=== PATIENT | male | born 1965 | race Caucasian/White ===

== ENCOUNTER 2024-10-26 07:24 | Day surgery (SDC) | payer OTHER ==
--- NOTE | 2024-10-22 11:42 | EKG ---
Test Date: 2024-10-22 Test Time: 12:20:47 Body Design Checker: PATI MEASUREMENT RESULTS: Intervals: Rate: 82 IN: 156 QRSD: 96 QT: 356 QTc: 415 [place]: P: 55 IN: 156 QRS: 66 T: 45 INTERPRETIVE STATEMENTS: Normal sinus rhythm Normal ECG No previous ECG available for comparison Electronically Signed On 10-22-24 11:42:28 BANQUET MANAGER by Adi Kraus
[2024-10-22 11:47] LABS: Absolute Eosinophils 0.3 K/uL (0-0.5); Absolute Lymphocytes (CBC) 2.7 K/uL (0.7-4.9); Absolute Monocytes 0.7 K/uL (0.1-1.3); Absolute Neutrophil 4.9 K/uL (1.8-8.0); Basophils % 0.2 % (0-1.3); Eosinophils % 3.3 % (0-4.4); Hematocrit 45.6 % (39.6-49.0); Hemoglobin 16.1 g/dL (13.6-17.9); Lymphocytes % 31.3 % (15.3-44.8); MCH 30.1 pg (27.0-35.0); MCHC 35.3 g/dL (32.0-36.0); MCV 85.4 fL (80-100); MPV 7.5 fL (7.6-11.3); Monocytes % 8.3 % (3.3-12.3); Neutrophils % 56.9 % (41.7-73.7); Platelets 333 thou/uL (152-406); RBC Red Blood Cell Count 5.34 M/uL (4.33-5.43); Red Cell Distribution Width 13.3 % (12.1-15.2)
[2024-10-22 11:55] LABS: Anion Gap 5.4 mEq/L (5.0-15.0); Potassium 4.4 mEq/L (3.5-5.1)
--- NOTE | 2024-10-22 12:33 | RAD REPORT ---
EXAMINATION: ONE VIEW CHEST XR CLINICAL INDICATION: PREOP TECHNIQUE: Frontal chest projection is submitted. Examination is limited by patient positioning and t echnique. COMPARISON: No prior exam. FINDINGS: The lungs are well inflated and clear. The heart is upper limit of normal in size. No displaced fract ures identified. IMPRESSION: No acute intrathoracic abnormalities.
[2024-10-26] MEDS: Ringers Lactate 1,000 ML IV ONE (07:45)
[2024-10-26] MEDS ORDERED: MIDAZOLAM HCL 2 MG/2 ML INJ ONE (08:18)
[2024-10-26] MEDS ORDERED: KETOROLAC 30 MG/ML INJ ONE (08:18)
[2024-10-26] MEDS ORDERED: FENTANYL CITR 100 MCG/2 ML ONE (08:18)
[2024-10-26] MEDS ORDERED: ONDANSETRON 4 MG/2 ML VIAL ONE (08:18)
[2024-10-26] MEDS ORDERED: propofoL 200 MG/20 ML VIAL IV ONE (08:18)
[2024-10-26] MEDS ORDERED: dexAMETHasone 10 MG/ML VIAL ONE (08:18)
[2024-10-26] MEDS ORDERED: LIDOCAINE 2% MPF 5 ML VIAL ONE (08:19)
[2024-10-26] MEDS: CEFAZOLIN SODIUM 2 GM/VIAL ONE (09:38)
[2024-10-26] MEDS: BUPIVACAINE 0.5% PF 10 ML VIAL ONE (09:55)
[2024-10-26] MEDS ORDERED: NS 0.9% VIAL 20 ML ONE (09:55)
[2024-10-26] MEDS ORDERED: INSULIN REGULAR (HUMAN) 100 UNIT/ML ONE (10:15)
[2024-10-26] MEDS: FENTANYL CITR 100 MCG/2 ML ONE (11:15)
--- NOTE | 2024-10-26 11:22 | P.OP ---
Date of Service: 10/26/24 Preop diagnosis: Inflamed sebaceous cyst of the back Postop diagnosis: Same Procedure performed: Wide excision of back mass 10 x 6 cm with layered closure Surgeon: Jay Suaer MD Cashier Or Checker Stock Clerk: Jovanna ROJO Estimated blood loss: Minimal Specimen: Cyst contents for culture and sensitivity, sebaceous cystinfected from the back Findings: As above Anesthesia: General Complications: None Drains: Lise quarter-inch Fluids and blood products: Nonapplicable Disposition: Recovery room Operative note: Patient brought to the OR and placed in the supine position. General anesthesia began and patient placed in the left lateral position. Patient prepped and draped in the usual sterile fashion. Marcaine 0.5% infiltrated locally. 15 blade used to make approximately a 10 x 6 cm incision to include this large inflamed and infected sebaceous cyst. Subcutaneous tissue divided. Entire cyst excised down to the deep subcutaneous tissue. There was minimal oozing noted from the cyst which was cultured. Entire cyst was sent to pathology as specimen. Wound irrigated and bleeding controlled with cautery. Quarter inch Lise drain placed and secured with 3-0 nylon. #1 chromic used to reapproximate the deep and superficial subcutaneous tissue. 2-0 nylon used to close skin loosely. Sterile dressing applied. Patient awakened and taken to recovery room in good general condition. CC:
[2024-10-26] MEDS: HYDROMORPHONE HCL 1 MG/ML INJ ONE (11:25)
[2024-10-26 11:37] VITALS: O2SAT 97
[2024-10-26] MEDS ORDERED: HYDROCODONE/APAP 7.5/325 MG TAB ONE (11:57)
[2024-10-26] MEDS: HYDROCODONE/APAP 7.5/325 MG TAB PO PRN (12:00)
[2024-10-26 12:39] VITALS: BP 135/89; TEMP 97
== END 2024-10-26 12:50 | disposition home or self-care (01) ==
LOC: OR 07:24
PROVIDERS: ATTEND Surgery
PROC: 0JB70ZZ Excision of Back Subcutaneous Tissue and Fascia, Open Approach (ICD-10-PCS; principal; 2024-10-26 08:30)
DX: L72.3 Sebaceous cyst (principal)
CPT/HCPCS: 11406; 93005; 87070; 85025; 80048; 36415; 87205; 82947 ×2; 88304; 87075; 71045; A4216; J2704; J2003; J2250; J3010 ×2; J1100; J1171; J2405; J7120

== ENCOUNTER 2025-01-13 11:56 | Emergency (ER) | payer OTHER ==
--- OUTSIDE RECORDS SUMMARY | 2025-01-13 11:59 | XMS REPORT | Continuity of Care Document ---
Author Name Unknown Address [address] [facility] [place] [address] [facility] Address [address] [facility] [address] [place] [address] Care Team Providers Care Clicker Operator Name Role Phone Pcp, Patient Does Not Have A Primary Care Physic julio cesar PACO ALVARADO Attending Clinician UnaPaco Dial MD Attending Clinician + Doctor Unassigned, Evaro Attending Clinician U JONES Cooper Attending Clinician JONES Greer Attending Clinician Jones Greer MD Attending Clinician [phone] Eb BENTLEY Attending Clinician Unavailable Eb Young Attending Clinician [phone] Eb BENTLEY Admitting Clinician Unavailable Payers Payer Name Policy Type Policy Number Effective Date Expirati on Date Source MEDICARE PART A \T\ B [id number] 2011 00:00:00 Allergies, Adverse Reactions, Alerts Allergy Name Allergy Type Status Severity Reaction(s) Onset Date Inactive Date Treating Clinician Comments Source NO KNOWN ALLERGIE S Drug Class Active [facility] Social History Social Habit Start Date Stop Date Quantity Comments Source Sexual orientation U [facility] History of Social function 2023-09-19 00:00:00 2023-09-19 00:00:00 [facility] Sex Assigned At 1965 00:00:00 1965 00:00:00 [facility] Smoking Status Start Date Stop Date Source Tobacco smoking consumption unknown [facility] Medications Ordered Medication Name Filled Medication Name Start Date Stop Date Current Medication? Ordering Clinician Indication Dosage Frequency Signature (SIG) Comments Components Source naproxen (NAPROSYN) tablet 500 mg 2022-10 19:00: 00 09-10 18:00 :00 No 500mg 500 mg, Oral, ONCE, 1 dose, On Sat09/10/23 at 1300, Routine [facility] naproxen (NAPROSYN) 500 mg tablet 2022-10 00:00: 00 Yes [id number] 500mg Take 1 tablet by mouth in the morning and 1 tablet in the evening. Take with meals. [facility] Vital Signs Vital Name Observation Time Observation Value Comments S ashly Systolic blood pressure 2023-09-24 19:58:00 162 mm[Hg] [facility] Diastolic blood pressure 2023-09-24 19:58:00 96 mm[Hg] [facility] Heart rate 2023-09-24 19:58:00 61 /min [facility] Body temperature 2023-09-24 19:58:00 36.67 Dayana [facility] Body height 2023-09-24 19:58:00 180.3 cm [facility] Body weight 2023-09-24 19:58:00 127.461 kg [facility] BMI 2023-09-24 19:58:00 39.19 kg/m2 [facility] Body height 2023-09-19 19:34:00 180.3 cm [facility] Body weight 2023-09-19 19:34:00 127.461 kg [facility] BMI 2023-09-19 19:34:00 39.19 kg/m2 [facility] Systolic blood pressure 2023-09-10 16:49:00 169 mm[Hg] [facility] Diastolic blood pressure 2023-09-10 16:49:00 87 mm[Hg] [facility] Heart rate 2023-09-10 16:49:00 82 /min [facility] Body temperature 2023-09-10 16:49:00 36.61 Dayana [facility] Respiratory rate 2023-09-10 16:49:00 14 /min [facility] Body height 2023-09-10 16:49:00 180.3 cm [facility] Body weight 2023-09-10 16:49:00 127.461 kg [facility] BMI 2023-09-10 16:49:00 39.19 kg/m2 [facility] Oxygen saturation in Arterial blood by Pulse oximetry 2023-09-10 16:49:00 99 /min [facility] Procedures Procedure Date / Time Performed Performing Clinicia n Source ASSIGNMENT OF BENEFITS 2023-09-24 19:18:25 Docto r Unassigned, Evaro [facility] ASSIGNMENT OF BENEFITS 2023-09-10 19:25:24 Docto r Unassigned, Evaro [facility] XR ELBOW >3 VW RIGHT 2023-09-10 18:12:42 Eb Bentley [facility] NOTICE OF PRIVACY PRACTICES 2023-09-10 16:44:10 Doctor Unassigned, Evaro [facility] CONSENT/REFUSAL FOR DIAGNOSIS AND TREATMENT 2023-09-10 16:41:49 Doctor Unassigned, Evaro [facility] Encounters Start Date/Time End Date/Time Encounter Type Admission Type Attending Clinicians Care Facility Care Department Encounter ID Source 2023-09-24 14:00:00 2023-09-24 16:04:34 Outpatient R PACO ALVARADO [facility] [id number] [facility] 2023-09-24 14:00:00 2023-09-24 16:04:34 Office Visit Paco Alvarado [facility] ..114 [id number] [facility] 2023-09-24 00:00:00 2023-09-24 00:00:00 Orders Only Doctor Unassigned, Evaro [facility] .0.114 [id number] [facility] 2023-09-19 13:30:00 2023-09-19 14:11:30 Outpatient R KAUFMANJONES CRAIG [facility] [id number] [facility] 2023-09-19 13:30:00 2023-09-19 14:11:30 Office Visit Jones Kaufman [facility] 1..840.114 [id number] [facility] 2023-09-19 00:00:00 2023-09-19 00:00:00 Telephone Jones Kaufman [facility] 1..840.114 [id number] [facility] 2023-09-10 10:50:00 2023-09-10 13:56:00 Emergency X Eb BENTLEY [facility] ERT [id number] [facility] 2023-09-10 10:50:00 2023-09-10 13:56:00 Emergency Eb Bentley [facility] 1..840.114 [id number] [facility]
[2025-01-13] MEDS ORDERED: ASPIRIN 81 MG CHEWABLE TABLET ONE (12:31)
[2025-01-13 12:58] LABS: Absolute Basophils 0.1 K/uL (0-0.5); Absolute Eosinophils 0.2 K/uL (0-0.5); Absolute Lymphocytes (CBC) 2.3 K/uL (0.7-4.9); Absolute Monocytes 0.6 K/uL (0.1-1.3); Absolute Neutrophil 4.9 K/uL (1.8-8.0); Eosinophils % 2.7 % (0-4.4); Hemoglobin 16.3 g/dL (13.6-17.9); Lymphocytes % 28.2 % (15.3-44.8); MCHC 35.5 g/dL (32.0-36.0); MCV 84.4 fL (80-100); MPV 7.2 fL (7.6-11.3); Monocytes % 7.9 % (3.3-12.3); Neutrophils % 60.2 % (41.7-73.7); Platelets 309 thou/uL (152-406); RBC Red Blood Cell Count 5.45 M/uL (4.33-5.43); Red Cell Distribution Width 13.5 % (12.1-15.2)
[2025-01-13 13:03] LABS: PT Prothrombin Time 12.3 SECONDS (10-13.0); Protime INR 1.08
--- NOTE | 2025-01-13 13:05 | RAD REPORT ---
EXAMINATION: ONE VIEW CHEST XR CLINICAL INDICATION: Male, 59 years old.,CHEST PAIN TECHNIQUE: Frontal chest projection is submitted. Examination is limited by patient positioning and t echnique. COMPARISON: 10/22/2024 FINDINGS: The lungs are well inflated and clear. No pneumothorax or sizable effusion. The heart is normal in s ize. Mediastinal contours are unremarkable. IMPRESSION: No acute intrathoracic abnormalities.
[2025-01-13 13:22] LABS: Albumin 3.6 g/dL (3.4-5.0); Albumin/Globulin Ratio 0.8 (1.1-1.8); Anion Gap 8.1 mEq/L (5.0-15.0); Bilirubin Direct 0.2 mg/dL (0-0.2); Bilirubin Indirect, Calculated 0.6 mg/dL (0.2-0.8); Bilirubin Total 0.8 mg/dL (0.2-1.0); Globulin 4.5 g/dL (2.3-3.5); Magnesium 1.8 mg/dL (1.6-2.4); Potassium 4.1 mEq/L (3.5-5.1); Protein, Total 8.1 g/dL (6.4-8.2)
[2025-01-13 13:25] LABS: Troponin High Sensitivity 2400.8 pg/mL (<58.9)
[2025-01-13] MEDS ORDERED: HEPARIN/D5W 25,000 UNIT/500 ML BAG IV ONE (13:27)
[2025-01-13] MEDS ORDERED: HEPARIN 5000 UNIT/ML 1 ML VIAL ONE (13:34)
[2025-01-13 13:52] LABS: Anisocytosis 1+; Blood Morphology Comment NOTED (NOT SEEN); Platelet Estimate ADEQ; White Blood Cell Scan OK (OK)
[2025-01-13 13:53] LABS: Microcytosis SLIGHT
--- NOTE | 2025-01-13 14:04 | EDPHYS ---
Physician Documentation [facility] Name: Dean Rizo Age: 59 yrs Sex: Male : 1965 Arrival Date: 01/13/2025 Time: 11:56 Bed 5 Private MD: ED Physician Jacob Thomas HPI: 01/13 13:56 This 59 yrs old Male presents to ER via Ambulatory with complaints of Chest Pain. ms3 13:56 59-year-old male with no past medical history presents to the emergency department for ms3 chest pain that began yesterday. Patient states the pain is sharp and currently rated 2/10 without radiation. Patient has taken Tums without relief of his symptoms. Patient denies nausea, vomiting, shortness of breath.. Historical: - Allergies: 12:28 No Known Allergies; jl7 - Home Meds: 12:28 None [Active]; jl7 - PMHx: 12:28 None; jl7 - PSHx: 12:28 Appendectomy; jl7 - Immunization history:: Adult Immunizations up to date. - Infectious Disease History:: Denies. - Social history:: Smoking status: Patient denies any tobacco usage or history of. ROS: 13:56 Constitutional: Negative for fever, and chills. Respiratory: Negative for shortness of ms3 breath, cough, wheezing, and pleuritic chest pain, Abdomen/GI: Negative for abdominal pain, nausea, vomiting, diarrhea, and constipation, MS/Extremity: Negative for injury and deformity, 13:56 Cardiovascular: Positive for chest pain, Exam: 13:56 Constitutional: This is a well developed, well nourished patient who is awake, alert, ms3 and in no acute distress. Chest/axilla: Normal chest wall appearance and motion. Nontender with no deformity. Cardiovascular: Regular rate and rhythm with a normal S1 and S2. No gallops, murmurs, or rubs. Normal PMI, no JVD. No pulse deficits. Respiratory: Lungs have equal breath sounds bilaterally, clear to auscultation and percussion. No rales, rhonchi or wheezes noted. No increased work of breathing, no retractions or nasal flaring. Abdomen/GI: Soft, non-tender, with normal bowel sounds. No distension or tympany. No guarding or rebound. No evidence of tenderness throughout. Skin: Warm, dry with normal turgor. Normal color with no rashes, no lesions, and no evidence of cellulitis. MS/ Extremity: Pulses equal, no cyanosis. Neurovascular intact. Full, normal range of motion. 14:06 ECG was reviewed by the Attending Physician. ms3 Vital Signs: 12:15 BP 161 / 100; Pulse 77; Resp 15; Temp 97.9; Pulse Ox 94% ; Weight 117.93 kg; Height 5 jl7 ft. 11 in. ; Pain 2/10; 12:30 BP 158 / 86; Pulse 74; Resp 16; Pulse Ox 94% ; db 13:15 BP 143 / 89; Pulse 72; Resp 16; Pulse Ox 94% ; db 14:00 BP 143 / 97; Pulse 89; Resp 18; Pulse Ox 95% ; db 14:00 BP 133 / 84; Pulse 89; Resp 16; Pulse Ox 95% on R/A; db 15:30 BP 129 / 84; Pulse 73; Resp 18; Pulse Ox 94% ; db 12:15 Body Mass Index 36.26 (117.93 kg, 180.34 cm) jl7 12:15 Pain Scale: Adult jl7 MDM: 12:42 Medical Screening Exam initiated ms3 13:56 Differential diagnosis: abnormal EKG, acute myocardial infarction, coronary artery ms3 disease chest wall pain, stable angina. HEART Score: History: Moderately Suspicious (1), ECG: Normal (0), Age: > 45 and < 65 years (1), Risk Factors: No Risk Factors Known (0), Troponin: > or = 3 x Normal Limit (2), Total Score = 4. The patient was given aspirin in the Emergency Department. Data reviewed: vital signs, nurses notes, lab test result(s), EKG, radiologic studies, and as a result, I will transfer patient. Consideration of Admission/Observation Patient transferred as [facility]'s recyclable materials distributor is down at this time. Management of patient was discussed with the following: Hospitalist: Dr Bryant Carmichael. I considered the following discharge prescriptions or medication management in the emergency department Medications were administered in the Emergency Department. See MAR. Independent interpretation of the following test(s) in the Emergency Department EKG: See my EKG interpretation above. Counseling: I had a detailed discussion with the patient and/or guardian regarding the historical points, exam findings, and any diagnostic results supporting the discharge/admit diagnosis, lab results, radiology results, the need for further work-up and treatment in the hospital. ED course: Patient remains in stable condition with improvement in his chest pain. Discussed necessity for transfer with patient he understands and agrees with plan.. 04 12:07 Order name: Basic Metabolic Panel; Complete Time: 13:27 ms3 01/13 12:07 Order name: CBC with Diff; Complete Time: 14:03 ms3 01/13 12:07 Order name: LFT's; Complete Time: 13:27 ms3 01/13 12:07 Order name: Magnesium; Complete Time: 13:27 ms3 01/13 12:07 Order name: NT PRO-BNP; Complete Time: 13:27 ms3 01/13 12:07 Order name: PT-INR; Complete Time: 13:27 ms3 01/13 12:07 Order name: Troponin HS; Complete Time: 13:27 ms3 01/13 13:20 Order name: CBC Smear Scan; Complete Time: 14:03 EDMS 01/13 13:29 Order name: Ptt, Activated; Complete Time: 13:49 jl7 01/13 12:07 Order name: XRAY Chest (1 view); Complete Time: 13:27 ms3 01/13 12:07 Order name: Cardiac monitoring; Complete Time: 13:01 ms3 01/13 12:07 Order name: EKG - Nurse/Tech; Complete Time: 13:01 ms3 01/13 12:07 Order name: IV Saline Lock; Complete Time: 13:02 ms3 01/13 12:07 Order name: Labs collected and sent; Complete Time: 13:02 ms3 01/13 12:07 Order name: O2 Per Protocol; Complete Time: 13:02 ms3 01/13 12:07 Order name: O2 Sat Monitoring; Complete Time: 13:02 ms3 EC:06 Rate is 79 beats/min. Rhythm is regular. QRS [place] is Normal. MS interval is normal. QRS ms3 interval is normal. Clinical impression: NSR w/ Non-specific ST/T Changes. Interpreted by me. Reviewed by me. Administered Medications: 12:35 Drug: Aspirin PO Chewable Tablet 324 mg PO once; 81 mg tablets x 4 Route: PO; db 13:44 Follow up: Response: No adverse reaction 7 13:47 Drug: Heparin (VT-Bolus No thrombolytic) - HEParin IVP 60 units/kg IVP once; Max 5000 jl7 units {Co-Signature: cm10 (Elba Hough RN).} Route: IVP; Site: right hand; 15:12 Follow up: Response: No adverse reaction db 13:48 Drug: Heparin (VT Drip) 12 units/kg/[place] - ([place] [address] units, D5W IV 500 ml) IV at jl7 calculated rate Per protocol; Max initial rate 1000 units/hr {Co-Signature: cm10 (Elba Hough RN).} Route: IV; Rate: calculated rate; Site: right hand; 16:02 Follow up: IV Status: Infusion continued upon transfer db Disposition: 13:56 Critical Care:. ms3 Disposition Summary: 01/13/25 14:03 Transfer Ordered Notes: Transfer Location: [facility] ms3 Reason: Higher level of care ms3 Condition: Stable ms3 Problem: new ms3 Symptoms: are unchanged ms3 Accepting Physician: Dr Bryant Carmichael(01/13/25 16:02) db Diagnosis - Subsequent non-ST elevation (NSTEMI) myocardial infarction ms3 - Chest pain, unspecified ms3 - Elevated blood-pressure reading, without diagnosis of hypertension ms3 Forms: - Medication Reconciliation Form ms3 - SBAR form ms3 Critical care time excluding procedures: 13:56 Critical care time: Bedside Care: 35 minutes, Consultation: 5 minutes. Total time: 40 ms3 minutes Signatures: Dispatcher [employer] EDAraceli Zhang RN RN jl7 Jacob Thomas DO DO ms3 Yasmine Turcios RN RN db Elba Hough RN cm10 Corrections: (The following items were deleted from the chart) 12:08 12:08 Chest Single View+RAD.RAD.BRZ ordered. EDMS EDMS 13:30 13:30 PTT, ACTIVATED+COAG.LAB.BRZ ordered. EDMS EDMS 14:03 14:03 Dr Bryant Carmichael ms3 ms3 16:02 14:03 Dr Bryant Carmichael ms3 db
--- NOTE | 2025-01-13 14:04 | ER ---
Nurse's Notes [facility] Name: Dean Rizo Age: 59 yrs Sex: Male : 1965 Arrival Date: 01/13/2025 Time: 11:56 Bed 5 Private MD: Diagnosis: Subsequent non-ST elevation (NSTEMI) myocardial infarction;Chest pain, unspecified;Elevated blood-pressure reading, without diagnosis of hypertension Presentation: 01/13 12:15 Chief complaint: Patient states: Constant midsternal CP since yesterday, sharp, heavy, jl7 rated 2/10 right now and 9/10 at worst. Lasts 20-30 minutes when it increases. Coronavirus screen: At this time, the client does not indicate any symptoms associated with coronavirus-19. Ebola Screen: No symptoms or risks identified at this time. Initial Sepsis Screen: Does the patient meet any 2 criteria? No. Patient's initial sepsis screen is negative. Does the patient have a suspected source of infection? No. Patient's initial sepsis screen is negative. Risk Assessment: Do you want to hurt yourself or someone else? Patient reports no desire to harm self or others. Onset of symptoms was January 12, 2025. 12:15 Method Of Arrival: Ambulatory jl7 12:15 Acuity: KAVEH 2 jl7 Triage Assessment: 12:28 General: Appears in no apparent distress. uncomfortable, Behavior is calm, cooperative, jl7 appropriate for age. Pain: Complains of pain in mid-sternal area Pain currently is 2 out of 10 on a pain scale. at worst was 9 out of 10 on a pain scale. Cardiovascular: Patient's skin is warm and dry. Historical: - Allergies: 12:28 No Known Allergies; jl7 - Home Meds: 12:28 None [Active]; jl7 - PMHx: 12:28 None; jl7 - PSHx: 12:28 Appendectomy; jl7 - Immunization history:: Adult Immunizations up to date. - Infectious Disease History:: Denies. - Social history:: Smoking status: Patient denies any tobacco usage or history of. Screenin:48 [facility] ED Fall Risk Assessment (Adult) History of falling in the last 3 months, db including since admission No falls in past 3 months (0 pts) Confusion or Disorientation No (0 pts) Intoxicated or Sedated No (0 pts) Impaired Gait No (0 pts) Mobility Assist Device Used No (0 pt) Altered Elimination No (0 pt) Score/Fall Risk Level 0 - 2 = Low Risk Oriented to surroundings, Maintained a safe environment. Abuse screen: Denies threats or abuse. Denies injuries from another. Nutritional screening: No deficits noted. Tuberculosis screening: No symptoms or risk factors identified. Assessment: 12:35 Reassessment: Patient appears in no apparent distress at this time. Patient and/or db family updated on plan of care and expected duration. Pain level reassessed. Patient is alert, oriented x 3, equal unlabored respirations, skin warm/dry/pink. General: Appears in no apparent distress. comfortable, Behavior is calm, cooperative. Pain: Complains of pain in chest and mid-sternal area Pain does not radiate. Pain began gradually. Neuro: Level of Consciousness is awake, alert, obeys commands, Oriented to person, place, time, situation. Respiratory: Airway is patent Respiratory effort is even, unlabored, Respiratory pattern is regular, symmetrical. 13:30 Reassessment: Patient appears in no apparent distress at this time. Patient is alert, jl7 oriented x 3, equal unlabored respirations, skin warm/dry/pink. Dr. Thomas at bedside discussing results and POC. 14:34 Reassessment: Patient appears in no apparent distress at this time. Patient and/or db family updated on plan of care and expected duration. Pain level reassessed. Patient is alert, oriented x 3, equal unlabored respirations, skin warm/dry/pink. CALLED [facility] X 3 NO ANSWER. CALLING CALL [facility]. 14:37 Reassessment: RECEIVED NEW NUMBER FOR [facility]. [phone]. db 14:41 Reassessment: Patient appears in no apparent distress at this time. Patient and/or db family updated on plan of care and expected duration. Pain level reassessed. Patient is alert, oriented x 3, equal unlabored respirations, skin warm/dry/pink. 14:41 Reassessment: ATTEMPTED TO GIVE NURSE REPORT. NURSE STATES IS NOT GETTING THE PT AND TO db CALL BACK IN 5 MIN. 15:07 Reassessment: CALLED [facility] TO GIVE PATIENT REPORT. db 15:15 Reassessment: Patient appears in no apparent distress at this time. Patient and/or db family updated on plan of care and expected duration. Pain level reassessed. Patient is alert, oriented x 3, equal unlabored respirations, skin warm/dry/pink. Vital Signs: 12:15 BP 161 / 100; Pulse 77; Resp 15; Temp 97.9; Pulse Ox 94% ; Weight 117.93 kg; Height 5 jl7 ft. 11 in. ; Pain 2/10; 12:30 BP 158 / 86; Pulse 74; Resp 16; Pulse Ox 94% ; db 13:15 BP 143 / 89; Pulse 72; Resp 16; Pulse Ox 94% ; db 14:00 BP 143 / 97; Pulse 89; Resp 18; Pulse Ox 95% ; db 14:00 BP 133 / 84; Pulse 89; Resp 16; Pulse Ox 95% on R/A; db 15:30 BP 129 / 84; Pulse 73; Resp 18; Pulse Ox 94% ; db 12:15 Body Mass Index 36.26 (117.93 kg, 180.34 cm) jl7 12:15 Pain Scale: Adult 7 Vitals: 12:30 Cardiac Rhythm Assessment Regular Sinus rhythm. ED Course: 11:59 Patient arrived in ED. mr 12:07 Jacob Thomas DO is Attending Physician. ms3 12:18 Yasmine Turcios, RN is Primary Nurse. 12:28 Triage completed. jl7 12:28 Arm band placed on right wrist. jl7 12:40 XRAY Chest (1 view) In Process Unspecified. EDMS 12:48 Patient has correct armband on for positive identification. Bed in low position. Call db light in reach. Side rails up X 1. Client placed on continuous cardiac and pulse oximetry monitoring. NIBP monitoring applied. vehicle monitor technician on. Pulse ox on. NIBP on. Pillow given. 12:48 Initial lab(s) drawn, by me, sent to lab. Inserted saline lock: 20 gauge in left db antecubital area, using aseptic technique. Blood collected. Flushed with 10 mL NS. Patient maintains SpO2 saturation greater than 95% on room air. 13:23 Notified ED physician of a critical lab result(s). Troponin 2,400.8. jl7 13:[address] [facility]. bd 13:40 Provided Education on: Heparin drip. jl7 16:00 No provider procedures requiring assistance completed. Patient transferred, IV remains db in place. Administered Medications: 12:35 Drug: Aspirin PO Chewable Tablet 324 mg PO once; 81 mg tablets x 4 Route: PO; db 13:44 Follow up: Response: No adverse reaction jl7 13:47 Drug: Heparin (DE-Bolus No thrombolytic) - HEParin IVP 60 units/kg IVP once; Max 5000 jl7 units {Co-Signature: cm10 (Elba Hough RN).} Route: IVP; Site: right hand; 15:12 Follow up: Response: No adverse reaction db 13:48 Drug: Heparin (DE Drip) 12 units/kg/[place] - ([place] [address] units, D5W IV 500 ml) IV at jl7 calculated rate Per protocol; Max initial rate 1000 units/hr {Co-Signature: cm10 (Elba Hough RN).} Route: IV; Rate: calculated rate; Site: right hand; 16:02 Follow up: IV Status: Infusion continued upon transfer db Medication: 12:48 VIS not applicable for this client. db Outcome: 14:03 ER care complete, transfer ordered by ms3 16:00 Transferred by ground EMS to [facility], Transfer form completed. db X-rays sent w/ patient. 16:00 Condition: stable 16:00 Instructed on the need for transfer, 16:02 Patient left the ED. db Signatures: Dispatcher [employer] EDMS Leana Bahena, Chelsey, Reg Reg mr AguilarAraceli, RN RN jl7 Jacob Thomas DO DO ms3 Yasmine Turcios RN RN db Elba Hough RN cm10 Corrections: (The following items were deleted from the chart) 13:50 13:26 Reassessment: Patient appears in no apparent distress at this time. Patient jl7 and/or family updated on plan of care and expected duration. Pain level reassessed. Patient is alert, oriented x 3, equal unlabored respirations, skin warm/dry/pink. db 15:11 14:00 BP 143 / 97; Pulse 89bpm; Resp 16bpm; Pulse Ox 95% RA; db db
[2025-01-13 16:21] VITALS: TEMP 97.9
[2025-01-13 16:29] VITALS: BP 129/84; O2SAT 94
--- NOTE | 2025-01-14 11:49 | EKG ---
Test Date: 2025-01-13 Test Time: 12:20:36 Sales Recruiter: KAREN MEASUREMENT RESULTS: Intervals: Rate: 79 NH: 158 QRSD: 96 QT: 374 QTc: 428 [place]: P: 48 NH: 158 QRS: 68 T: 47 INTERPRETIVE STATEMENTS: Normal sinus rhythm Nonspecific ST abnormality Abnormal ECG Compared to ECG 10/22/2024 12:20:47 ST (T wave) deviation now present Electronically Signed On 01-14-25 11:48:29 CDT by Adi Kraus
== END 2025-01-13 16:02 | disposition short-term general hospital (02) ==
LOC: ER 11:56
DX: I21.4 Non-ST elevation (NSTEMI) myocardial infarction (principal); R03.0 Elevated blood-pressure reading, without diagnosis of hypertension
CPT/HCPCS: 96365; 93005; 85025; 80048; 36415; 83735; 85610; 80076; 85730; 84484; 83880; 71045; 99285; 96366; J1644

== ENCOUNTER 2025-01-25 03:44 | Emergency (ER) | payer OTHER ==
[2025-01-25 04:16] LABS: Protime INR 1.06
[2025-01-25 04:18] LABS: Absolute Basophils 0.1 K/uL (0-0.5); Absolute Eosinophils 0.3 K/uL (0-0.5); Absolute Lymphocytes (CBC) 3.7 K/uL (0.7-4.9); Absolute Monocytes 0.9 K/uL (0.1-1.3); Absolute Neutrophil 3.7 K/uL (1.8-8.0); Eosinophils % 3.3 % (0-4.4); Hematocrit 43.6 % (39.6-49.0); Lymphocytes % 42.8 % (15.3-44.8); MCH 29.8 pg (27.0-35.0); MCHC 34.5 g/dL (32.0-36.0); MCV 86.4 fL (80-100); MPV 7.4 fL (7.6-11.3); Neutrophils % 42.9 % (41.7-73.7); Nucleated Red Blood Cells % 0.2 % (0-0); Platelets 325 thou/uL (152-406); RBC Red Blood Cell Count 5.05 M/uL (4.33-5.43); Red Cell Distribution Width 13.6 % (12.1-15.2)
[2025-01-25 04:31] LABS: Albumin 3.4 g/dL (3.4-5.0); Albumin/Globulin Ratio 0.8 (1.1-1.8); Anion Gap 7.7 mEq/L (5.0-15.0); Bilirubin Direct 0.2 mg/dL (0-0.2); Bilirubin Indirect, Calculated 0.3 mg/dL (0.2-0.8); Bilirubin Total 0.5 mg/dL (0.2-1.0); Globulin 4.2 g/dL (2.3-3.5); Magnesium 1.9 mg/dL (1.6-2.4); Potassium 3.7 mEq/L (3.5-5.1); Protein, Total 7.6 g/dL (6.4-8.2)
[2025-01-25 04:45] LABS: Troponin High Sensitivity 85.5 pg/mL (<58.9)
[2025-01-25] MEDS ORDERED: PRASUGREL (EFFIENT) 10 MG TAB ONE (04:47)
[2025-01-25] MEDS ORDERED: ASPIRIN 81 MG CHEWABLE TABLET ONE (04:54)
--- NOTE | 2025-01-25 05:58 | RAD REPORT ---
EXAM: XR Chest, 1 View CLINICAL HISTORY: The patient is 59 years old and is Male; CHEST PAIN TECHNIQUE: Frontal view of the chest. COMPARISON: No relevant prior studies available. FINDINGS: Lungs: Unremarkable. No consolidation. Pleural space: Unremarkable. No pneumothorax. Heart: Unremarkable. Mediastinum: Unremarkable. Normal mediastinal contour. Bones/joints: No acute findings. IMPRESSION: No acute findings in the chest. Electronically signed by: Bryant Goodman MD 01/25/2025 05:43 AM CDT 8 Due to temporary technical issues with the PACS/EagerPanda reporting system, reports are being ubaldo d by the in-house radiologist without review as a courtesy to ensure prompt reporting the interpreting radiologist is fully responsible for the content of the report. Transcribed Date/Time: 01/25/2025 5:57 AM
--- NOTE | 2025-01-25 07:24 | ER ---
Nurse's Notes [facility] Name: Dean Rizo Age: 59 yrs Sex: Male : 1965 Arrival Date: 01/25/2025 Time: 03:44 Bed 4 Private MD: Diagnosis: Chest pain, unspecified Presentation: 01/25 03:53 Chief complaint: Patient states: I have some chest discomfort that started about 2 hrs kd3 ago. The pain is a 1/10, but i had some stents place on the and so I am concerned. Coronavirus screen: Vaccine status: Patient reports being unvaccinated. Ebola Screen: No symptoms or risks identified at this time. Initial Sepsis Screen: Does the patient meet any 2 criteria? No. Patient's initial sepsis screen is negative. Does the patient have a suspected source of infection? No. Patient's initial sepsis screen is negative. Risk Assessment: Do you want to hurt yourself or someone else? Patient reports no desire to harm self or others. Onset of symptoms was January 25, 2025. 03:53 Method Of Arrival: Ambulatory kd3 03:53 Acuity: KAVEH 3 kd3 Triage Assessment: 03:54 General: Appears in no apparent distress. Behavior is calm, cooperative. Pain: kd3 Complains of pain in chest Pain currently is 1 out of 10 on a pain scale. Cardiovascular: Reports chest pain, shortness of breath. Historical: - Allergies: 03:54 No Known Allergies; kd3 - PMHx: 07:45 Myocardial infarction; jl7 - PSHx: 03:54 Appendectomy; kd3 07:45 cardiac stent; jl7 - Immunization history:: Adult Immunizations up to date. - Infectious Disease History:: Denies. - Social history:: Smoking status: Patient denies any tobacco usage or history of. - Family history:: not pertinent. Screenin:[facility] ED Fall Risk Assessment (Adult) History of falling in the last 3 months, kd3 including since admission No falls in past 3 months (0 pts) Confusion or Disorientation No (0 pts) Intoxicated or Sedated No (0 pts) Impaired Gait No (0 pts) Mobility Assist Device Used No (0 pt) Altered Elimination No (0 pt) Score/Fall Risk Level 0 - 2 = Low Risk Oriented to surroundings. Abuse screen: Denies threats or abuse. Denies injuries from another. Nutritional screening: No deficits noted. Tuberculosis screening: No symptoms or risk factors identified. Assessment: 03:58 General: Appears in no apparent distress. Behavior is calm, cooperative. Pain: Pain kd3 does not radiate. Pain began 2 hours ago. Neuro: Level of Consciousness is awake, alert, obeys commands, Oriented to person, place, time, situation. Cardiovascular: Patient's skin is warm and dry. Respiratory: Airway is patent Trachea midline Respiratory effort is even, unlabored, Respiratory pattern is regular, symmetrical. 04:40 Reassessment: Patient and/or family updated on plan of care and expected duration. Pain kd3 level reassessed. Patient is alert, oriented x 3, equal unlabored respirations, skin warm/dry/pink. Vital Signs: 03:55 Weight 119.29 kg; Height 5 ft. 11 in. ; kd3 03:58 BP 112 / 71; Pulse 68; Resp 16; Temp 98.1(O); Pulse Ox 96% on R/A; kd3 05:12 BP 123 / 78; Pulse 58; Resp 16; Pulse Ox 100% on R/A; kd3 06:11 BP 124 / 77; Pulse 56; Resp 19; Pulse Ox 98% on R/A; kd3 07:45 BP 126 / 74; Pulse 57; Resp 15; Pulse Ox 97% ; jl7 03:55 Body Mass Index 36.68 (119.29 kg, 180.34 cm) kd3 [employer] Coma Score: 07:00 Eye Response: spontaneous(4). Motor Response: obeys commands(6). Verbal Response: sp4 oriented(5). Total: 15. ED Course: 03:45 Patient arrived in ED. jj6 03:52 Colt Nickerson MD is Attending Physician. sp4 03:53 Rossy Mercado, JUANI is Primary Nurse. kd3 03:54 Triage completed. kd3 03:54 Arm band placed on right wrist. kd3 03:56 Initial lab(s) drawn, by me, sent to lab. EKG done, by echocardiography tech. reviewed by Colt Nickerson MD. Inserted saline lock: 20 gauge in left antecubital area, using aseptic technique. Blood collected. Flushed with 10 mL NS. 03:57 Basic Metabolic Panel Sent. vc1 03:57 CBC with Diff Sent. vc1 03:57 LFT's Sent. vc1 03:58 Magnesium Sent. vc1 03:58 NT PRO-BNP Sent. vc1 03:58 PT-INR Sent. vc1 03:58 Troponin HS Sent. vc1 03:59 Patient has correct armband on for positive identification. Provided Education on: kd3 vitals . Client placed on continuous cardiac and pulse oximetry monitoring. NIBP monitoring applied. monitor technician on. 04:00 No provider procedures requiring assistance completed. Patient maintains SpO2 kd3 saturation greater than 95% on room air. 04:11 XRAY Chest (1 view) In Process Unspecified. EDMS 06:46 Troponin High Sensitivity Sent. oe 07:45 IV discontinued, intact, bleeding controlled, No redness/swelling at site. Pressure jl7 dressing applied. Administered Medications: 04:58 Drug: Effient PO 60 mg PO once; (loading dose) Route: PO; kd3 07:46 Follow up: Response: No adverse reaction jl7 04:58 Drug: Aspirin PO Chewable Tablet 324 mg PO once; 81 mg tablets x 4 Route: PO; kd3 07:46 Follow up: Response: No adverse reaction jl7 Medication: 04:00 VIS not applicable for this client. kd3 Outcome: 07:24 Discharge ordered by . sp4 07:45 Discharged to home ambulatory, jl7 07:45 Condition: stable 07:45 Discharge instructions given to patient, Instructed on discharge instructions, follow up and referral plans. medication usage, Demonstrated understanding of instructions, follow-up care, medications, Prescriptions given X 1, 07:46 Patient left the ED. jl7 Signatures: Dispatcher [employer] EDMS Marc Evangelista Jahala RN RN jl7 Jada Hamilton jj6 Rossy Mercado RN RN kd3 Phyllis Acuna RN RN vc1 Colt Nickerson MD MD sp4
--- NOTE | 2025-01-25 07:24 | EDPHYS ---
Physician Documentation [facility] Name: Dean Rizo Age: 59 yrs Sex: Male : 1965 Arrival Date: 01/25/2025 Time: 03:44 Bed 4 Private MD: ED Physician Colt Nickerson HPI: 01/25 06:51 This 59 yrs old Male presents to ER via Ambulatory with complaints of Stint sp4 put in on 01/13/25, Chest Tightness, Neck and Upper Back Pain. 07:00 59-year-old male with history of coronary artery stent on 01/13/[address] presents with moderate left-sided chest discomfort associated with radiation to the back. 07:00 Patient states he was not able to get his Effient. He does take aspirin daily but sp4 Effient he is not taking.. Historical: - Allergies: 03:54 No Known Allergies; kd3 - PMHx: 07:45 Myocardial infarction; jl7 - PSHx: 03:54 Appendectomy; kd3 07:45 cardiac stent; jl7 - Immunization history:: Adult Immunizations up to date. - Infectious Disease History:: Denies. - Social history:: Smoking status: Patient denies any tobacco usage or history of. - Family history:: not pertinent. ROS: 07:00 Constitutional: Negative for fever, chills, and weight loss, positive chest discomfort sp4 positive back pain 07:00 All other systems are negative, Exam: 07:00 Constitutional: This is a well developed, well nourished patient who is awake, alert, sp4 and in no acute distress. Head/Face: Normocephalic, atraumatic. Eyes: Pupils equal round and reactive to light, extra-ocular motions intact. Lids and lashes normal. Conjunctiva and sclera are not injected. Cornea within normal limits. Periorbital areas with no swelling, redness, or edema. ENT: Nares patent. No nasal discharge, no septal abnormalities noted. Tympanic membranes are normal and external auditory canals are clear. Oropharynx with no redness, swelling, or masses, exudates, or evidence of obstruction, uvula midline. Mucous membranes moist. Neck: Trachea midline, no thyromegaly or masses palpated, and no cervical lymphadenopathy. Supple, full range of motion without nuchal rigidity, or vertebral point tenderness. Chest/axilla: Normal chest wall appearance and motion. Nontender with no deformity. No lesions are appreciated. Cardiovascular: Regular rate and rhythm with a normal S1 and S2. No gallops, murmurs, or rubs. Normal PMI, no JVD. No pulse deficits. Respiratory: Lungs have equal breath sounds bilaterally, clear to auscultation and percussion. No rales, rhonchi or wheezes noted. No increased work of breathing, no retractions or nasal flaring. Abdomen/GI: Soft, with normal bowel sounds. No distension or tympany. No guarding or rebound. No evidence of tenderness throughout. Back: No spinal tenderness. No costovertebral tenderness. Skin: Warm, dry with normal turgor. Normal color with no rashes, no lesions, and no evidence of cellulitis. MS/ Extremity: Pulses equal, no cyanosis. Neurovascular intact. Full, normal range of motion. Neuro: Awake and alert, GCS 15, oriented to person, place, time, and situation. Cranial nerves II-XII grossly intact. Motor strength 5/5 in all extremities. Sensory grossly intact. Psych: Awake, alert, with orientation to person, place and time. Behavior, mood, and affect are within normal limits 07:00 ECG was reviewed by the Attending Physician. Normal sinus rhythm rate 64 Vital Signs: 03:55 Weight 119.29 kg; Height 5 ft. 11 in. ; kd3 03:58 BP 112 / 71; Pulse 68; Resp 16; Temp 98.1(O); Pulse Ox 96% on R/A; kd3 05:12 BP 123 / 78; Pulse 58; Resp 16; Pulse Ox 100% on R/A; kd3 06:11 BP 124 / 77; Pulse 56; Resp 19; Pulse Ox 98% on R/A; kd3 07:45 BP 126 / 74; Pulse 57; Resp 15; Pulse Ox 97% ; jl7 03:55 Body Mass Index 36.68 (119.29 kg, 180.34 cm) kd3 Phoebe Coma Score: 07:00 Eye Response: spontaneous(4). Motor Response: obeys commands(6). Verbal Response: sp4 oriented(5). Total: 15. MDM: 04:26 Medical Screening Exam initiated sp4 06:51 ED course: EXAM: XR Chest, 1 View CLINICAL HISTORY: The patient is 59 years old and is sp4 Male; CHEST PAIN TECHNIQUE: Frontal view of the chest. COMPARISON: No relevant prior studies available. FINDINGS: Lungs: Unremarkable. No consolidation. Pleural space: Unremarkable. No pneumothorax. Heart: Unremarkable. Mediastinum: Unremarkable. Normal mediastinal contour. Bones/joints: No acute findings. IMPRESSION: No acute findings in the chest. . 01/26 05:04 Differential diagnosis: acute myocardial infarction, acute pericarditis, anxiety, sp4 coronary artery disease chest wall pain, congestive heart failure cholecystitis. HEART Score: History: Slightly Suspicious (0), ECG: Normal (0), Age: > 45 and < 65 years (1), Risk Factors: > or = 3 Risk factors for atherosclerotic disease (2), Troponin: > 1 and < 3 x normal limit (1), Total Score = 4. The patient was not given aspirin in the Emergency Department. Patient reports taking aspirin within the past 24 hours. Data reviewed: vital signs, nurses notes, old medical records. Data reviewed: lab test result(s), EKG, radiologic studies, plain films. 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 01/25 03:52 Order name: Basic Metabolic Panel; Complete Time: 06:24 sp4 01/25 03:52 Order name: CBC with Diff; Complete Time: 06:24 sp4 01/25 03:52 Order name: LFT's; Complete Time: 06:24 sp4 01/25 03:52 Order name: Magnesium; Complete Time: 06:24 sp4 01/25 03:52 Order name: NT PRO-BNP; Complete Time: 06:24 sp4 01/25 03:52 Order name: PT-INR; Complete Time: 06:24 sp4 01/25 03:52 Order name: Troponin HS; Complete Time: 06:03 sp4 01/25 06:24 Order name: Troponin High Sensitivity; Complete Time: 07:15 sp4 01/25 03:52 Order name: XRAY Chest (1 view) sp4 01/25 03:52 Order name: Cardiac monitoring; Complete Time: 03:57 sp4 01/25 03:52 Order name: EKG - Nurse/Tech; Complete Time: 03:57 sp4 01/25 03:52 Order name: IV Saline Lock; Complete Time: 03:57 sp4 01/25 03:52 Order name: Labs collected and sent; Complete Time: 03:57 sp4 01/25 03:52 Order name: O2 Per Protocol; Complete Time: 03:57 sp4 01/25 03:52 Order name: O2 Sat Monitoring; Complete Time: 03:57 sp4 EC/21 03:54 Rate is 64 beats/min. Rhythm is regular, Normal Sinus Rhythm. QRS [place] is Normal. [place] sp4 interval is normal. QRS interval is normal. QT interval is normal. No Q waves. T waves are Normal. No ST changes noted. Clinical impression: No evidence of ischemia. Interpreted by me. Reviewed by me. Administered Medications: 04:58 Drug: Effient PO 60 mg PO once; (loading dose) Route: PO; kd3 07:46 Follow up: Response: No adverse reaction jl7 04:58 Drug: Aspirin PO Chewable Tablet 324 mg PO once; 81 mg tablets x 4 Route: PO; kd3 07:46 Follow up: Response: No adverse reaction jl7 Disposition Summary: 01/25/25 07:24 Discharge Ordered Notes: Location: Home sp4 Problem: new sp4 Symptoms: have improved sp4 Condition: Stable sp4 Diagnosis - Chest pain, unspecified sp4 Followup: sp4 - With: Private Physician - When: 7 - 10 days - Reason: Recheck today's complaints Discharge Instructions: - Discharge Summary Sheet sp4 - Nonspecific Chest Pain, Adult sp4 Forms: - Patient Portal Instructions sp4 Prescriptions: - Effient 10 mg Oral tablet - take 1 tablet ORAL route daily; 90 tablet; Refills: 0, Product Selection sp4 Permitted Signatures: Dispatcher [employer] EDMS Jabier Gaitan, DIE REPAIR-C DIE REPAIR-Cla1 Araceli Aguilar RN RN jl7 Rossy Mercado RN RN kd3 Colt Nickerson MD MD sp4 Corrections: (The following items were deleted from the chart) 03:53 03:53 BASIC METABOLIC PANEL+C.LAB.BRZ ordered. EDMS EDMS 03:53 03:53 CBC+H.LAB.BRZ ordered. EDMS EDMS 03:53 03:53 HEPATIC FUNCTION+C.LAB.BRZ ordered. EDMS EDMS 03:53 03:53 MAGNESIUM+C.LAB.BRZ ordered. EDMS EDMS 03:53 03:53 PROBNP+C.LAB.BRZ ordered. EDMS EDMS 03:53 03:53 PROTIME (+INR)+COAG.LAB.BRZ ordered. EDMS EDMS 03:53 03:53 Troponin High Sensitivity+C.LAB.BRZ ordered. EDMS EDMS 03:53 03:53 Chest Single View+RAD.RAD.BRZ ordered. EDMS EDMS
[2025-01-25 07:51] VITALS: TEMP 98.1
[2025-01-25 07:56] VITALS: BP 126/74; O2SAT 97
--- NOTE | 2025-01-27 12:45 | EKG ---
Test Date: 2025-01-25 Test Time: 03:54:43 Steam Trap Worker: CARLOS MEASUREMENT RESULTS: Intervals: Rate: 64 IL: 172 QRSD: 104 QT: 388 QTc: 400 Carey: P: 56 IL: 172 QRS: 74 T: 56 INTERPRETIVE STATEMENTS: Normal sinus rhythm Incomplete right bundle branch block Borderline ECG Compared to ECG 01/13/2025 12:20:36 Incomplete right bundle-branch block now present ST (T wave) deviation no longer present Electronically Signed On 01-27-25 12:38:19 CDT by Adi Kraus
== END 2025-01-25 07:46 | disposition home or self-care (01) ==
LOC: ER 03:44
DX: R07.9 Chest pain, unspecified (principal); I25.2 Old myocardial infarction; Z95.5 Presence of coronary angioplasty implant and graft; Z95.818 Presence of other cardiac implants and grafts
CPT/HCPCS: 36415; 71045; 80048; 80076; 83735; 83880; 84484; 85025; 85610; 93005; 99285